=== PATIENT | female | born 1995 | race Caucasian/White ===

== ENCOUNTER 2023-04-09 00:53 | Emergency (ER) | payer MEDICAID ==
[~2023-04-09] VITALS: Ht 170.2 cm; Wt 56.7 kg
[2023-04-09 00:55] VITALS: BP 139/79; PULSE 79; RESP 18; TEMP 97.3; O2SAT 98
--- NOTE | 2023-04-09 00:58 | NUR ---
PT [facility]. TAKEN TO BED 3
--- NOTE | 2023-04-09 00:58 | NUR ---
[facility] AT BEDSIDE
--- NOTE | 2023-04-09 01:05 | NUR ---
Dr. Watters examining patient.
[2023-04-09 01:11] VITALS: BP 139/79; PULSE 79; RESP 18; TEMP 97.3; O2SAT 98
--- NOTE | 2023-04-09 01:35 | NUR ---
Patient discharged. Written and verbal after care instructions given and explained. Patient verbalized understanding. Ambulatory with steady gait. All questions addressed prior to discharge. Advised to follow up with PMD.
== END 2023-04-09 01:35 | disposition home or self-care (01) ==
LOC: MED 00:53 → EDBD 00:53 → MED 01:35
DX: M54.2 Cervicalgia (principal); Z88.8 Allergy status to other drugs, medicaments and biological substances; Y04.2XXA Assault by strike against or bumped into by another person, initial encounter; Y93.89 Activity, other specified; Y92.89 Other specified places as the place of occurrence of the external cause; Y99.8 Other external cause status
CPT/HCPCS: 99283